=== PATIENT | male | born 1985 | race Caucasian/White ===

== ENCOUNTER 2020-03-20 22:55 | Emergency (ER) | payer BC ==
[2020-03-20] MEDS ORDERED: Tetracaine HCl/PF 0.5% 4 ML Bottle EYELF ONE (23:08)
--- NOTE | 2020-03-20 23:47 | EDM.PDOC ---
ED HPI GENERAL MEDICAL PROBLEM - General Chief Complaint: ENT Problem Stated Complaint: LEFT EYE SCRATCH Time Seen by Provider: 03/20/20 23:42 Source of Information: Reports: Patient History Limitations: Reports: No Limitations - History of Present Illness INITIAL COMMENTS - FREE TEXT/NARRATIVE: pt has a painful left eye after scratching it with a stick. Onset: Today, Sudden Duration: Hour(s): Location: Reports: Face Associated Symptoms: Reports: No Other Symptoms Left Eye Pain Score (Numeric/FACES): 2 - Related Data Allergies Allergy/AdvReac Type Severity Reaction Status Date / Time No Known Allergies Allergy Verified 03/20/20 23:11 Home Meds: Home Meds NK [No Known Home Meds] 03/20/20 [History] Past Medical History Musculoskeletal History: Reports: Fracture Other Musculoskeletal History: left wrist 2000 - Past Surgical History Musculoskeletal Surgical History: Reports: Arthroscopic Procedure Social & Family History - Tobacco Use Smoking Status *Q: Never Smoker - Caffeine Use Caffeine Use: Reports: Coffee - Alcohol Use Days Per Week of Alcohol Use: 1 Number of Drinks Per Day: 2 Total Drinks Per Week: 2 - Recreational Drug Use Recreational Drug Use: No ED ROS ENT - Review of Systems Review Of Systems: See Below Constitutional: Reports: No Symptoms HEENT: Reports: Eye Pain Respiratory: Reports: No Symptoms Cardiovascular: Reports: No Symptoms Endocrine: Reports: No Symptoms GI/Abdominal: Reports: No Symptoms ED EXAM, ENT - Physical Exam Exam: See Below Text/Narrative:: pt scratched his left eye today with a stick. He feels like he scratched it and doesn,t have things in the eye. He did irrigate it. Exam Limited By: No Limitations General Appearance: Alert, Anxious, Mild Distress, Other (pt has a red injected left eye. There is no evidence of a piece of wood present. Tetracaine was inserted in the eye with good relief. The eye was stained had he has a corneal abrasion on the lateral aspect of the cornea. This is of moderate depth. ) Ears: Normal TMs Nose: Normal Inspection Mouth/Throat: Normal Inspection Course - Vital Signs Last Recorded V/S: Last Vital Signs Temp 35.7 C L 03/20/20 23:16 Pulse 70 03/20/20 23:16 Resp 16 03/20/20 23:16 BP 112/76 03/20/20 23:16 Pulse Ox 98 03/20/20 23:16 - Orders/Labs/Meds Orders: Active Orders 24 hr Category Date Time Status Gentamicin [Gentak 0.3% Ophth Oint] Med 03/21/20 09:00 Active 1 gm EYELF TID Medication Orders Gentamicin Sulfate (Gentak 0.3% Ophth Oint) 1 gm EYELF TID ALCIRA Meds: Medications Generic Name Dose Route Start Last Admin Trade Name Freq PRN Reason Stop Dose Admin Gentamicin Sulfate 1 gm 03/21/20 09:00 Gentak 0.3% Ophth Oint EYELF TID ALCIRA Discontinued Medications Generic Name Dose Route Start Last Admin Trade Name Freq PRN Reason Stop Dose Admin Tetracaine HCl 1 ml 03/20/20 23:08 03/20/20 23:20 Tetracaine 0.5% Steri-Unit Deandra EYELF 03/20/20 23:09 1 ml ASDIRECTED ONE Administration - Re-Assessments/Exams Free Text/Narrative Re-Assessment/Exam: 03/20/20 23:46 The eye was patched with tetracine and gentamycin ointmenmt. He will leave the patch in place until tomorrow. Departure - Departure Time of Disposition: 23:46 Disposition: Home, Self-Care 01 Condition: Fair Clinical Impression: Corneal abrasion - Discharge Information Referrals: PCP,None [Primary Care Provider] - Forms: ED Department Discharge Care Plan Goals: leave the patch in place until tomorrow. remove about noon tomorrow and start using the drops that are ordered tid, Use dark glasses to avoid the bright lite exposure. gentamycin eye drops tid Sepsis Event Note (ED) - Evaluation Sepsis Screening Result: No Definite Risk - Focused Exam Vital Signs: Vital Signs Temp Pulse Resp BP Pulse Ox 03/20/20 23:16 35.7 C L 70 16 112/76 98 03/20/20 23:10 35.7 C L 70 16 112/76 98 - My Orders Last 24 Hours: My Active Orders 03/21/20 09:00 Gentamicin [Gentak 0.3% Ophth Oint] 1 gm EYELF TID - Assessment/Plan Last 24 Hours: My Active Orders 03/21/20 09:00 Gentamicin [Gentak 0.3% Ophth Oint] 1 gm EYELF TID
== END 2020-03-21 00:11 | disposition home or self-care (01) ==
LOC: JP.ED 22:55
DX: S05.02XA Injury of conjunctiva and corneal abrasion without foreign body, left eye, initial encounter (principal); W22.8XXA Striking against or struck by other objects, initial encounter
CPT/HCPCS: 99283; A9270